=== PATIENT | female | born 1980 ===

== ENCOUNTER 2017-03-23 10:07 | Emergency (ER) | payer MEDICAID ==
[2017-03-23 10:25] VITALS: O2SAT 98
--- NOTE | 2017-03-23 10:33 | ED PDOC ---
HPI: Back Time Seen by Provider: 03/23/17 10:24 Chief Complaint (Nursing): Lower Extremity Problem/Injury Chief Complaint (Provider): Back pain History Per: Patient History/Exam Limitations: no limitations Onset/Duration Of Symptoms: Days (3) Current Symptoms Are (Timing): Still Present Additional Complaint(s): Pt. was working and lifted a heavy box and twisted. Started having pain since then. Pain on the left lower back going down her left leg. No numbness, tingles, weakness, incontinence, constipation. No dysuria. Ambulates with pain. Took motrin last night. No abd pain. Past Medical History Reviewed: Nursing Documentation, Vital Signs Vital Signs: Last Vital Signs Temp Pulse Resp BP Pulse Ox 98 03/23/17 10:23 - Medical History PMH: No Chronic Diseases - Surgical History Surgical History: No Surg Hx - Family History Family History: States: Unknown Family Hx - Social History Current smoker - smoking cessation education provided: No Alcohol: None Drugs: Denies - Allergies Allergies/Adverse Reactions: Allergies Allergy/AdvReac Type Severity Reaction Status Date / Time No Known Allergies Allergy Verified 03/23/17 10:22 Review of Systems Constitutional: Negative for: Weakness Cardiovascular: Negative for: Chest Pain, Edema, Light Headedness Respiratory: Negative for: Shortness of Breath Gastrointestinal: Negative for: Nausea, Vomiting, Abdominal Pain, Diarrhea, Constipation Genitourinary Female: Negative for: Dysuria Musculoskeletal: Positive for: Back Pain. Negative for: Neck Pain, Shoulder Pain, Arm Pain Skin: Negative for: Rash Neurological: Negative for: Weakness, Numbness Physical Exam - Reviewed Nursing Documentation Reviewed: Yes Vital Signs Reviewed: Yes - Physical Exam Skin: Positive for: Normal Color, Warm, DRY Neck: Positive for: Normal, Painless ROM, Supple Cardiovascular/Chest: Positive for: Regular Rate, Rhythm Respiratory: Positive for: Normal Breath Sounds Gastrointestinal/Abdominal: Positive for: Normal Exam, Bowel Sounds, Soft. Negative for: Tenderness Back: Positive for: Other (L lower back mild tender; no echymosis). Negative for: L CVA Tenderness, R CVA Tenderness Extremity: Positive for: Normal ROM, Other (straight leg positive at 45* L). Negative for: Tenderness, Pedal Edema Neurologic/Psych: Positive for: Alert, Oriented - ECG O2 Sat by Pulse Oximetry: 98 - Radiology X-Ray: Read By Radiologist X-Ray Interpretation: Other (anterolisthesis) - Progress ED Course And Treament: 1144: Stable. AAOx3. Pain free. Tolerated PO. Ambulated with no issues. Fu with pcp. Disposition - Clinical Impression Clinical Impression: Back pain - Patient ED Disposition Is Patient to be Admitted: No Counseled Patient/Family Regarding: Studies Performed, Diagnosis, Need For Followup, Rx Given - Disposition Referrals: [facility] [Outside] - 03/25/17 Disposition: Routine/Home Disposition Time: 11:45 Condition: STABLE Additional Instructions: See the clinic for further evaluation and possible MRI if pain still present. Return if not better in 3 days. Instructions: Acute Low Back Pain (ED)
--- NOTE | 2017-03-23 11:25 | RAD ---
PROCEDURE: Radiographs of the Lumbar Spine. HISTORY: back pain COMPARISON: No prior. FINDINGS: BONES: Normal alignment. No listhesis. No fracture. DISC SPACES: Slight grade 1 anterolisthesis at L5-S1 OTHER FINDINGS: None. IMPRESSION: Slight grade 1 anterolisthesis at L5-S1
== END 2017-03-23 12:13 | disposition home or self-care (01) ==
LOC: H.ER 10:07
DX: M54.9 Dorsalgia, unspecified (principal)
CPT/HCPCS: 72114; 81025; 96372; 99282; J1885